=== PATIENT | female | born 1990 | race African-American/Black ===

== ENCOUNTER → 2016-06-08 | Outpatient (CLI) | payer OTHER ==
--- NOTE | 2016-06-08 08:19 | MR ---
MRI of the Brain (Without Contrast) History: Chronic migraine headache, G43.719. Technique: T1-weighted images were acquired axially and sagittally from the foramen magnum to the ve rtex. Axial fast inversion recovery, fast T2-weighted, GRE and diffusion-weighted axial images were obtained without contrast. Findings: Identified only on gradient imaging series 6 and 600 (image 26 and 28 respectively) is a villanueva btle small conspicuous round focus of field dropout within a left posterior parietal sulcus. The shel[place] cent brain is unremarkable and within normal limits. The ventricles, cisterns, and sulci are normal without atrophy, hydrocephalus, midline shift, hernia tion, or epidural/subdural hematomas. No intracranial mass or mass effect. Diffusion-weighted sequenc e demonstrates no acute infarct. Cerebellar tonsils are in normal position. Pituitary gland is normal in size. Normal signal flow-void in the superior sagittal sinus, basilar artery, and bilateral inter nal carotid arteries indicating patency. Paranasal sinuses and mastoid air cells are clear. Impression: Possibly an abnormal vessel (aneurysm) vs. evidence of punctate hemorrhage or calcificati on in a posterior left parietal sulcus. Recommend CT without contrast (with initial review to exclude punctate calcification) to be followed immediately with CT angiography (if no correlate calcificatio n) for further evaluation. If real this could potentially be a sequelae of vasculitis or head trauma. I attempted to contact Dr. Nickerson at 8:14 am but the phone number on the patient's prescription was not in service.
--- NOTE | 2016-06-08 08:25 | MR ---
MRI of the Cervical Spine (Without Contrast) History: Intractable migraine headache, G43.719 Technique: Sagittal T1, FSE T2 and STIR images. Axial FSE T2 and GRE images. Findings: The craniocervical junction is normal. Cervical alignment is anatomic. The cervical neural canal is congenitally normal in size. Vertebral bodies maintain normal bone marrow signal. Disk spac es maintain normal height and hydration. Posterior disk margins are normal in all levels. Facets are normally aligned. The cervical cord is normal intrinsically without evidence of cyst formation, cord edema or hemorrhage. Incidentally noted, identified on sagittal imaging only, is a small subcentimete r nodule (9 mm) in the left tracheoesophageal groove that could represent a small lymph node or poten tially a parathyroid adenoma. Impression: 1. Normal cervical spine... 2. Small nodule in the left tracheoesophageal groove. If clinically indicated consider excluding hype rparathyroidism by checking the patient's serum calcium and PTH levels.
== END ==
LOC: FIMAGING 06:34
DX: R93.8 Abnormal findings on diagnostic imaging of other specified body structures (principal)